=== PATIENT | female | born 1985 | race Caucasian/White ===

== ENCOUNTER 2017-11-29 22:29 | Emergency (ER) | payer OTHER ==
[2017-11-29] MEDS ORDERED: Lactated Ringer's 1,000 ML IV ONE (22:52)
--- NOTE | 2017-11-29 23:01 | OBHP ---
Datetime: 11/29/2017 22:53 IP Adm Impression: , intrauterine Admit Comment, IP Provider: @ 35.3 wks GA c/o of headache that started 7pm, frontal in nature i ntially 03/18. Pt rpeorts took equivalent to tyeonol ( medication) and reprots still had persis tent headaceh. pt was advised by pcp to come in for evaluatoin. pt reprts headacha is still frontal a nd improved but still 5/10 intesnity. pt denies any blurry vision, scotomas, ruq/epigastric pain, hayden es, ovmiting, cp, sob, ctx, lof, vb, and reprots normal movements. pt reports bloodpuressure in the beginning was sliglty elevated up to 130s however has been normal and never needing medication. Pt preorts she feels a littel anxious however reports its minor. pt rpeorts she last ate or drank a w hile ago and reprots possibly may be dehyrated. Ante: PNC Dr Traylor, reports uncomplicated OB: P0 [employer]: denies PMH: Denies PSH: Lap cholecystectomy FHX: Father: HTN MEDS: PNV SHX: negative etoh/tobacco/durugs A/P @ 35.3 wks GA with headache r/o preeclampsia -Preeclmapc labs -IVH -cont toco and efm -possible teyonol -reevlate Pelvic Type - PN: Adequate Extremities - PN: Normal Abdomen - PN: Normal Back - PN: Normal Breast - PN: Normal Lungs - PN: Normal Heart - PN: Normal Thyroid - PN: Normal Neurologic - PN: Normal HEENT - PN: Normal General - PN: Normal Presentation-Admit: Vertex FHR - Baseline A Provider: 130 Membranes, Provider: Intact Contraction Comments Provider: irregular Comments, ACOG Physical Exam: GEN: NAD< AAO x 3 RESP: CTAB?L CVS: RRR< S1/S2 Abd: no RUQ/epigastric tendenrs,s no rigidity VE: closed, limited EXT: DTR 2+ b/l, negative ginny sign Gestation - Est Wks by US: 35.3 EGA AdmitDate IP: 35.3 Vital Signs Provider: Reviewed Vital Signs Provider Details: 1st bp: 136/98 IP Chief Complaint: Other NICHD Variability Prov Fetus A: Moderate 6-25bpm FHR Category Provider Fetus A: Category I NICHD Decel Fetus A IP Provider: None Dilatation, Provider: 0 Genitourinary Exam: Normal DTRs - PN: Normal
[2017-11-30 00:44] LABS: BASO % 0.4 % (0.0-2.0); EOS # 0.1 K/uL (0.0-0.7); EOS % 0.6 % (0.0-4.0); HEMOGLOBIN 10.4 g/dL (11.0-16.0); LYMPH # 1.6 K/uL (1.0-4.3); MEAN CELL VOLUME 87.7 fL (81.0-99.0); MEAN PLATELET VOLUME 10.7 fL (7.2-11.7); MONO # 0.5 K/uL (0.0-0.8); MONO % 6.5 % (0.0-10.0); NEUT # 6.1 K/uL (1.8-7.0); NEUT % 73.5 % (50.0-75.0); NRBC % 0.1 % (0.0-2.0); RBC 3.6 Mil/uL (3.80-5.20); RED CELL DISTRIBUTION WIDTH 15.2 % (11.5-14.5); WHITE BLOOD COUNT 8.3 K/uL (4.8-10.8)
[2017-11-30 00:50] LABS: SQUAMOUS EPITHIAL 10 /hpf (0-5); URINE BACTERIA RARE (<OCC); URINE BILIRUBIN NEGATIVE (NEGATIVE); URINE BLOOD NEGATIVE (NEGATIVE); URINE CLARITY Hazy (Clear); URINE COLOR Straw (YELLOW); URINE GLUCOSE (UA) NORMAL (Normal); URINE HYALINE CAST 0-2 /lpf (0-2); URINE LEUKOCYTE ESTERASE 2+ Leu/uL (Negative); URINE PROTEIN NEGATIVE (NEGATIVE); URINE UROBILINOGEN NORMAL mg/dL (0.2-1.0)
[2017-11-30 00:59] LABS: PROTHROMBIN TIME 11.1 SECONDS (9.7-12.2)
[2017-11-30 02:47] LABS: ALBUMIN 3.5 g/dL (3.5-5.0); ALT/SGPT 26 U/L (9-52); AST/SGOT 33 U/L (14-36); BLOOD UREA NITROGEN 5 mg/dL (7-17); GFR AFRICAN-AMERICAN > 60; GFR NON-AFRICAN AMERICAN > 60; URIC ACID 4.1 mg/dL (2.2-7.5)
[2017-11-30 07:18] VITALS: BP 128/66; PULSE 76; RESP 20; TEMP 97.8
== END 2017-11-30 03:12 | disposition home or self-care (01) ==
LOC: C.EROB 22:29
DX: O26.893 Other specified pregnancy related conditions, third trimester (principal); R51 Headache; Z3A.35 35 weeks gestation of pregnancy
CPT/HCPCS: 80053; 81001; 83615; 84550; 85025; 85384; 85610; 85730; 99283; J7120